=== PATIENT | male | born 1965 | race Caucasian/White ===

== ENCOUNTER → 2023-12-10 15:23 | Outpatient (REF) | payer OTHER, SELFPAY ==
[2023-12-10 18:09] LABS: Blood Urea Nitrogen 23 mg/dl (9-20); Calcium 9.6 mg/dl (8.4-10.2); Carbon Dioxide 27 mmol/L (22-30); Chloride 99 mmol/L (98-107); Glucose 82 mg/dl (70-99); Sodium 136 mmol/L (135-145); eGFR > 60.00
== END ==
LOC: RCS 15:23
PROVIDERS: ATTENDING PHYSICIAN Specialist; FAMILY PHYSICIAN Internal Medicine
DX: Z01.818 Encounter for other preprocedural examination (principal)
CPT/HCPCS: 36415; 80048; 93005

== ENCOUNTER → 2024-04-26 07:06 | Outpatient (REF) | payer OTHER, SELFPAY | LOC: RCS 07:06 | PROVIDERS: ATTENDING PHYSICIAN Internal Medicine Cardiovascular Disease; FAMILY PHYSICIAN Internal Medicine | DX: I77.819 Aortic ectasia, unspecified site (principal) | CPT/HCPCS: 93306 ==

== ENCOUNTER → 2025-06-02 09:07 | Outpatient (REF) | payer OTHER, SELFPAY | LOC: RCS 09:07 | PROVIDERS: ATTENDING PHYSICIAN Internal Medicine Cardiovascular Disease; FAMILY PHYSICIAN Internal Medicine | DX: I35.1 Nonrheumatic aortic (valve) insufficiency (principal) | CPT/HCPCS: 93306 ==

== ENCOUNTER 2025-06-26 12:14 | Emergency (ER) | payer OTHER, SELFPAY ==
[2025-06-26] VITALS (7 sets, daily range): BP systolic 132–166; BP diastolic 79–90
--- NOTE | 2025-06-26 12:52 | ED.GENMED ---
ED Provider Triage
<Vasu Hawk MD, Resident - Last Filed: 06/26/25 17:18>
-
Patient seen by provider in Triage?: Seen in Triage
History of Present Illness
<Vasu Hawk MD, Resident - Last Filed: 06/26/25 17:18>
General
Chief Complaint: Fainting Sensation
Source: patient and spouse
Exam Limitations: none
Time Seen by Provider: 06/26/25 12:18
History of Present Illness
History of Present Illness:
Patient is a 59-year-old male who presents here for feeling of dizziness associated with nausea and multiple episodes of PVCs. He was eating lunch today with his coworkers when when he had sudden dizziness that lasted for about 4 to 5 minutes. He
did not lose consciousness or hit his head. No seizure-like activity was witnessed. The school nurse then took his blood pressure and heart rate both of which were elevated. No vomiting, chest pain, shortness of breath, syncope, abdominal pain,
focal neurological deficits, weight loss. No preceding triggers like exertion, straining, emotional stress. He takes lisinopril hydrochlorothiazide for hypertension which she was diagnosed with at the age of 34. [address] Knott. No
diuretics or antiarrhythmics. No excessive use of caffeine, occasionally drinks alcohol, not on any stimulants. When paramedics brought him in his blood glucose level was 102.
Past History
<Vasu Hawk MD, Resident - Last Filed: 06/26/25 17:18>
Past History
ED Past Medical History: None
Social History
Tobacco: Non-smoker
Alcohol: Occasional
Drug: None
Personal:
Review of Systems
<Vasu Hawk MD, Resident - Last Filed: 06/26/25 17:18>
Review of Systems
Allergies reviewed?: Yes
All Other Systems: ROS reviewed and negative except as documented in HPI and ROS
Phy Exam
<Vasu Hawk MD, Resident - Last Filed: 06/26/25 17:18>
General Physical Exam
General Presentation: well appearing and mild distress
General Skin: warm
General Habitus: normal
General Mental: alert
Cardiovascular Exam
Cardiovascular Exam: no edema, no JVD, no murmur, normal peripheral pulses and occasionally irregular (with pauses)
Pulmonary Exam
Pulmonary Exam: lungs clear and no respiratory distress
Gastrointestinal Exam
Gastrointestinal Exam: normal bowel sounds, non tender, soft and non distended
Neurological Exam
Neurological Exam: alert and oriented x3
Musculoskeletal Exam
Musculoskeletal Exam: full ROM and no edema
Skin Exam
Skin Exam: normal color and warm/dry
Course
<Vasu Hawk MD, Resident - Last Filed: 06/26/25 17:18>
Orders/Labs/Results
Orders:
Orders
06/26/25 12:17
EKG [Electrocardiogram (*1)] Urgent
Reason for Study: Vertigo / Dizzy
EKG- Treatment ONCE
06/26/25 12:24
Basic Metabolic Panel Urgent
CBC/With Diff [Complete Blood Count/With Diff] Urgent
06/26/25 13:05
Magnesium Urgent
Potassium Urgent
Comment: ADD ON
Troponin I Urgent
06/26/25 13:38
Add On- LAB Urgent
Tests Added?: potassium
06/26/25 16:26
Troponin I Urgent
Abnormal Lab Results
06/26/25
12:24
MCH 31.2 H pg
(27.0-31.0)
Glucose 133 H mg/dl
(70-99)
06/26/25 12:24
06/26/25 13:32
Vital Signs
Initial and Last Documented VS:
Initial Vital Signs
BP
160/83
06/26/25 12:16
Last Documented Vital Signs
Temp Pulse Resp BP Pulse Ox
97.8 F 90 12 140/85 95
06/26/25 12:18 06/26/25 17:00 06/26/25 17:00 06/26/25 17:00 06/26/25 17:00
<Ward Harper, DO - Last Filed: 06/26/25 14:42>
Orders/Labs/Results
Orders:
Orders
06/26/25 12:17
EKG [Electrocardiogram (*1)] Urgent
Reason for Study: Vertigo / Dizzy
EKG- Treatment ONCE
06/26/25 12:24
Basic Metabolic Panel Urgent
CBC/With Diff [Complete Blood Count/With Diff] Urgent
06/26/25 13:05
Magnesium Urgent
Potassium Urgent
Comment: ADD ON
Troponin I Urgent
06/26/25 13:38
Add On- LAB Urgent
Tests Added?: potassium
06/26/25 16:26
Troponin I Urgent
Abnormal Lab Results
06/26/25
12:24
MCH 31.2 H pg
(27.0-31.0)
Glucose 133 H mg/dl
(70-99)
06/26/25 12:24
06/26/25 13:32
Vital Signs
Initial and Last Documented VS:
Initial Vital Signs
BP
160/83
06/26/25 12:16
Last Documented Vital Signs
Temp Pulse Resp BP Pulse Ox
97.8 F 90 12 140/85 95
06/26/25 12:18 06/26/25 17:00 06/26/25 17:00 06/26/25 17:00 06/26/25 17:00
<Vasu Hawk MD, Resident - Last Filed: 06/26/25 17:18>
MDM/Problems Addressed
Differential Diagnosis Includes:
Premature ventricular contractions, vertigo, orthostatic syncope, atrial fibrillation, dehydration, aortic stenosis, vasovagal syncope
MDM/Problems Addressed:
- EKG shows premature ventricular contractions
- CBC, CMP, Mg- normal
- Troponin 1 is normal, troponin 2 is normal
Discharge patient home with follow up to cardiology in 3 days.
<Vasu Hawk MD, Resident - Last Filed: 06/26/25 17:18>
*Pulse Oximetry
SaO2: 98
Oxygen Mode of Delivery: Room air
Patient hypoxic: no
*Critical Care Note
Total Time (30-74mins, 75-104mins- exclusive of procedures): Not Applicable
ED Attending Note
<Vasu Hawk MD, Resident - Last Filed: 06/26/25 17:18>
-
Portions of this chart may have been created with voice recognition software.� Occasional wrong word or��sound alike� substitutions may have occurred due to the inherent limitations of voice recognition software.
<Ward Harper, DO - Last Filed: 06/26/25 14:42>
ED Attending Note
Patient seen and examined by attending physician: Yes
I performed a history and physical exam of patient and discussed management with resident, I reviewed resident's note and agree with documented findings and plan of care.: Yes
ED Attending Note:
I have reviewed and agree with history and treatment plan by Vasu Hawk MD. My exam revealed
Physical Exam
General: no apparent distress, not acutely ill
Neck: supple. no meningeal signs. normal posterior pharynx
Heart: s1/s2 regular rate and rhythm, no murmur. equal radial
pulses.
HEENT: Pupils equal round reactive to light, EOMI
Lungs: no acute respiratory distress. clear bilaterally
Abdomen: normal bowel sounds. not tender. no CVAT
Neuro: alert and oriented. no focal neurological deficits cranial nerves II through XII intact
Skin: no rash
Psychiatric: well kept. interactive and cooperative
Extremities: no edema. no calf tenderness. negative homans. good distal pulses
Patient with near syncope episode, possibly vasovagal versus symptomatic PVCs. Normal recent echo, except widened aortic root. Do not suspect aortic dissection. Patient does not have any chest pain. Will trend troponin due to patient's
explanation of being diaphoretic. Otherwise doubt ACS. If repeat is negative patient will be discharged home to follow-up with Dr. Knott.
Discharge Plan
Departure
Patient Disposition: Home (Routine Discharge)
Date of Disposition: 06/26/25
Time of Disposition: 17:16
Patient with high blood pressure during this ER visit?: Yes
Condition: Good
Discharge Problem:
Near syncope
Instructions: Near Fainting (DC), BLOOD PRESSURE
Prescriptions:
No Action
prednisone 50 MG tablet
50 mg PO DAILY Qty: 5 0RF
gabapentin 300 MG capsule
300 mg PO TID Qty: 30 0RF
Referrals:
Pamella Knott MD [Active, Cardiology] - Call in 1-3 days for appt
Cesar Barroso, [Family Provider, Internal Medicine]
Activity Restrictions/Additional Instructions:
Please follow up with Dr. Knott within 3 days.
1. Please schedule a follow up appointment as directed. Call first thing tomorrow morning to make an appointment.
2. If indicated, please take your medications as instructed and indicated on discharge paperwork.
3. If any of your symptoms do not improve, or persist, or become more severe within 6-12 hours, please return to the emergency department for further care.
4. Please return to the emergency department if you develop a headache, neck pain/stiffness, fever greater than 100.4F, chest pain, shortness of breath, persistent nausea, vomiting, slurred speech, difficulty walking, numbness/tingling, weakness,
signs of infection or any other symptoms that are worrisome to you.
Please call [phone] if you have any questions
Interventions
Interventions:
*Risk Screen - Suicide Last Done: 06/26/25 12:18
*General Assessment Last Done: 06/26/25 12:18
*Neglect/Abuse Screening Last Done: 06/26/25 12:18
*ED- Fall Risk Assessment Last Done: 06/26/25 12:18
*ED COVID-19 Vaccine History Last Done: 06/26/25 12:18
*ED Influenza Vaccine History Last Done: 06/26/25 13:12
ED- Cardiac Assessment Last Done: 06/26/25 13:12
ED- Neurological Assessment Last Done: 06/26/25 13:12
Discharge Date and Time
Print Language: [id number]
[2025-06-26 12:55] LABS: Hematocrit 44.5 % (39.0-52.0); Hemoglobin 15.9 g/dL (13.0-18.0); Mean Corp Hgb Conc. 35.7 g/dL (33.0-37.0); Mean Corpuscular Volume 87.4 fL (80.0-94.0); Nucleated Red Blood Cells % 0 % (-); Platelet Count 204 10^3/uL (130-400); Red Cell Dist. Width 13.2 % (11.5-14.5)
[2025-06-26 13:05] LABS: Blood Urea Nitrogen 17 mg/dl (9-20); Calcium 9.2 mg/dl (8.4-10.2); Carbon Dioxide 22 mmol/L (22-30); Chloride 104 mmol/L (98-107); Glucose 133 mg/dl (70-99); Sodium 137 mmol/L (135-145); eGFR > 60.00
[2025-06-26 13:38] LABS: Magnesium 2.1 mg/dl (1.6-2.3)
[2025-06-26 13:58] LABS: Troponin I 0.013 ng/ml
[2025-06-26 14:27] LABS: Potassium 3.9 mmol/L (3.5-5.1)
[2025-06-26 17:00] LABS: Troponin I < 0.012 ng/ml
== END 2025-06-26 17:55 | disposition home or self-care (01) ==
LOC: EMR 12:14
PROVIDERS: EMERGENCY PHYSICIAN Emergency Medicine; FAMILY PHYSICIAN Internal Medicine
DX: R55 Syncope and collapse (principal); I49.3 Ventricular premature depolarization; I10 Essential (primary) hypertension
CPT/HCPCS: 99284; 80048; 83735; 84132; 84484; 85025; 93005

== ENCOUNTER → 2025-07-18 07:03 | Outpatient (REF) | payer OTHER, SELFPAY | LOC: RAD 07:03 | PROVIDERS: ATTENDING PHYSICIAN Internal Medicine Cardiovascular Disease; FAMILY PHYSICIAN Internal Medicine | DX: I77.819 Aortic ectasia, unspecified site (principal) | CPT/HCPCS: 71275; Q9967 ==

== ENCOUNTER → 2025-08-09 07:51 | Outpatient (REF) | payer OTHER, SELFPAY | LOC: HWRCS 07:51 | PROVIDERS: ATTENDING PHYSICIAN Internal Medicine Cardiovascular Disease; FAMILY PHYSICIAN Internal Medicine | DX: R94.31 Abnormal electrocardiogram [ECG] [EKG] (principal); I25.10 Atherosclerotic heart disease of native coronary artery without angina pectoris | CPT/HCPCS: 78452; 93017; A9500 ==